=== PATIENT | female | born 1965 | race Two or more races ===

== ENCOUNTER → 2024-06-26 | Outpatient (CLI) | payer MEDICAID, SELFPAY ==
--- NOTE | 2024-06-26 12:00 | XR_ITS ---
Examination: Carotid arterial duplex scan, ultrasound. Date and time of exam: June 26, 2024 1357 hours INDICATIONS: Intermittent headaches beginning 2 months ago Technique: Multiple sonographic images have been obtained of the carotid arteries and vertebral arteries, B-mode/grayscale imaging and Doppler spectral analysis and color flow Peak systolic and diastolic velocities have been recorded. Systolic diastolic ratios have been calculated. Findings: Right peak systolic velocities: Distal internal carotid artery peak systolic velocity is 1.1 M/sec Proximal internal carotid artery peak systolic velocity is 0.6 M/sec Carotid bifurcation peak systolic velocity is 0.6 M/sec External carotid artery peak systolic velocity is 0.4 M/sec Vertebral artery flow is antegrade. Left peak systolic velocities: Distal internal carotid artery peak systolic velocity is 0.7 M/sec Proximal internal carotid artery peak systolic velocity is 0.5 M/sec Carotid bifurcation peak systolic velocity is 0.6 M/sec External carotid artery peak systolic velocity is 0.5 M/sec Vertebral artery flow is antegrade Doppler waveform analysis demonstrates no spectral broadening Impression: Right internal carotid artery demonstrates 0-10% stenosis. Left internal carotid artery demonstrates 0-10% stenosis.
--- NOTE | 2024-06-26 13:30 | XR_ITS ---
Examination: Thyroid sonography complete TECHNIQUE: Grayscale sonographic images thyroid lobes are carful analysis Exam date and time: June 26, 2024 1323 hours INDICATIONS: Difficulty swallowing beginning 2 months ago FINDINGS: Right thyroid 5.0 x 1.9 x 1.7 cm Isthmus solid nodule 12 x 6 x 10 mm Left thyroid 5.0 x 1.3 x 1.7 cm IMPRESSION: Isthmus solid nodule 12 x 6 x 10 mm
== END | disposition home or self-care (01) ==
LOC: CDIM 12:20
PROVIDERS: Referring Provider Nurse Practitioner Family; Visit Provider Nurse Practitioner Family
DX: E04.1 Nontoxic single thyroid nodule (principal); R51.9 Headache, unspecified
CPT/HCPCS: 76536; 93880